=== PATIENT | male | born 1970 | race Caucasian/White ===

== ENCOUNTER 2025-09-08 10:43 | Emergency (ER) | payer OTHER, SELFPAY ==
[2025-09-08 10:46] VITALS: BP 139/89
--- NOTE | 2025-09-08 11:57 | EDRN ---
Dr. Reich in to see pt.
[2025-09-08 12:10] VITALS: BP 118/84; BMI 37.2
[2025-09-08 12:10] LABS: Hematocrit 51.3 % (39.0-52.0); Hemoglobin 17.2 g/dL (13.0-18.0); Mean Corp Hgb Conc. 33.5 g/dL (33.0-37.0); Mean Corpuscular Volume 88.4 fL (80.0-94.0); Nucleated Red Blood Cells % 0 % (-); Platelet Count 189 10^3/uL (130-400); Red Cell Dist. Width 12.9 % (11.5-14.5)
[2025-09-08 12:34] LABS: ALT (SGPT) 19 U/L (0-50); AST (SGOT) 22 U/L (17-59); Albumin 4.4 g/dl (3.5-5.0); Alkaline Phosphatase 64 U/L (38-126); Blood Urea Nitrogen 19 mg/dl (9-20); Calcium 8.9 mg/dl (8.4-10.2); Carbon Dioxide 27 mmol/L (22-30); Chloride 105 mmol/L (98-107); Estimated Creatinine Clearance 105 ml/min; Glucose 96 mg/dl (70-99); Lipase 52 U/L (23-300); Potassium 4.4 mmol/L (3.5-5.1); Sodium 137 mmol/L (135-145); Total Protein 7.3 g/dl (6.3-8.2); eGFR > 60.00
--- NOTE | 2025-09-08 12:36 | ED.GENMED ---
History of Present Illness
General
Chief Complaint: Abdominal Pain
Time Seen by Provider: 09/08/25 11:26
History of Present Illness
History of Present Illness:
55-year-old male with history of high blood pressure presenting to the emergency department for abdominal pain. Patient reports left lower quadrant abdominal pain since yesterday. Denies ever having this pain in the past. Denies any history of
abdominal surgeries. Denies any fever. Denies any changes in his stool. Denies nausea or vomiting. He has not tried any medications for pain. He denies additional acute medical complaints.
Past History
Past History
ED Past Medical History: None
ED Past Surgical History: None
Social History
Tobacco: Non-smoker
Personal:
Living: with family
Family History
Family History: Negative Diabetes, Hypertension, Early CAD, Asthma or Cancer
Phy Exam
Physical Exam
Physical Exam:
General: Well-appearing, no clinical signs of dehydration, nontoxic and in no acute distress
HEENT: protecting airway
Neck: appears supple
CV: Normal heart rate, regular rhythm
Resp: No accessory muscle use, no increased work of breathing, lungs clear to auscultation bilaterally
Abd: Soft and non-distended, reducible umbilical hernia. Reproducible tenderness to left lower quadrant without rebound or guarding
Extremities: No deformities, no swelling
Neuro: alert, no focal neurologic deficit
: deferred
Rectal: deferred
Psych: Normal affect
Skin: Intact
Course
Orders/Labs/Results
Orders:
Orders
09/08/25 11:57
CT Abd/pelvis W Iv Cont Urgent
Comment:
Reason For Exam: LLQ pain
09/08/25 12:03
Complete Blood Count/With Diff Urgent
Comprehensive Metabolic Panel Urgent
Lipase Urgent
Abnormal Lab Results
09/08/25
12:03
Total Bilirubin 2.4 H mg/dl
(0.2-1.3)
09/08/25 12:03
09/08/25 12:03
Vital Signs
Initial and Last Documented VS:
Initial Vital Signs
Temp Pulse Resp BP Pulse Ox
98.6 F 75 16 139/89 97
09/08/25 10:46 09/08/25 10:46 09/08/25 10:46 09/08/25 10:46 09/08/25 10:46
Last Documented Vital Signs
Temp Pulse Resp BP Pulse Ox
98.6 F 64 16 124/82 98
09/08/25 10:46 09/08/25 14:00 09/08/25 14:00 09/08/25 14:00 09/08/25 14:00
MDM/Problems Addressed
MDM/Problems Addressed:
55-year-old male with history of hypertension presenting to the emergency department for left-sided abdominal pain. Vital signs on arrival are normal.
On exam, patient is resting comfortably, nontoxic. Focal tenderness to the left lower quadrant with primary suspicion for uncomplicated diverticulitis. Given no prior history, will plan for laboratory analysis and CT imaging. Patient declining
any pain medication at this time.
15:15 - Patient's labs are unremarkable. CT shows epiploic appendagitis. Normal appendix. Patient does note trauma to the right lower extremity in the past, with chronic bruising. Suspected etiology of epiploic appendagitis. However does not
explain patient's present discomfort. Continue to suspect uncomplicated diverticulitis given location of pain. Given high clinical suspicion, will treat with Augmentin. Ultimately otherwise feel stable for discharge with continued outpatient
management. Return precautions discussed and patient verbalized understand
*Pulse Oximetry
SaO2: 97
Oxygen Mode of Delivery: Room air
Patient hypoxic: no
*Critical Care Note
Total Time (30-74mins, 75-104mins- exclusive of procedures): Not Applicable
ED Attending Note
-
Portions of this chart may have been created with voice recognition software.� Occasional wrong word or��sound alike� substitutions may have occurred due to the inherent limitations of voice recognition software.
Discharge Plan
Departure
Referrals:
Karo Galindo DO [Family Provider, Family Practice]
Interventions
Interventions:
*Risk Screen - Suicide Last Done: 09/08/25 10:50
*General Assessment Last Done: 09/08/25 11:55
*Neglect/Abuse Screening Last Done: 09/08/25 11:55
*ED- Fall Risk Assessment Last Done: 09/08/25 11:55
*ED COVID-19 Vaccine History Last Done: 09/08/25 11:55
*ED Influenza Vaccine History Last Done: 09/08/25 11:55
NQ-Ngilep-Ajwygdmwtl Assessment Last Done: 09/08/25 12:08
Discharge Date and Time
Print Language: FRISIAN
[2025-09-08 13:00] VITALS: BP 92/56
[2025-09-08 14:00] VITALS: BP 124/82
[2025-09-08] MEDS: AUGMENTIN 875 MG/125 MG 1 TABLET PO (15:30)
[2025-09-08 15:32] VITALS: BP 113/84
== END 2025-09-08 15:36 | disposition home or self-care (01) ==
LOC: EMR 10:43
PROVIDERS: EMERGENCY PHYSICIAN Student in an Organized Health Care Education/Training Program; FAMILY PHYSICIAN Family Medicine; REFERRING PHYSICIAN Orthopaedic Surgery
DX: R10.32 Left lower quadrant pain (principal); K63.89 Other specified diseases of intestine; K42.9 Umbilical hernia without obstruction or gangrene; I10 Essential (primary) hypertension
CPT/HCPCS: 99284; 74177; 80053; 83690; 85025; Q9967